=== PATIENT | female | born 1990 | race Caucasian/White ===

== ENCOUNTER 2020-07-02 12:00 | Emergency (ER) | payer BC, OTHER ==
[~2020-07-02 12:00] MED LIST: IBUPROFEN600 MG PO
[2020-07-02] MEDS ORDERED: CYCLOBENZAPRINE10 MG PO (15:17)
[2020-07-02] MEDS ORDERED: TORADOL 10 MG T10 MG PO (15:18)
== END 2020-07-02 15:33 | disposition home or self-care (01) ==
LOC: ER1 12:00
DX: S39.012A Strain of muscle, fascia and tendon of lower back, initial encounter (principal); F17.210 Nicotine dependence, cigarettes, uncomplicated; Z79.899 Other long term (current) drug therapy; X50.9XXA Other and unspecified overexertion or strenuous movements or postures, initial encounter
CPT/HCPCS: 81001; 84703; 96372; 99283; J1885